=== PATIENT | female | born 1955 | race Caucasian/White ===

== ENCOUNTER 2018-11-18 20:50 | Inpatient (IN) ==
[2018-11-18] MEDS ORDERED: SODIUM CHLORIDE 0.9% 1000ML 1,000 ML IV ONE (20:59)
[2018-11-18 21:37] LABS: Eosinophils # (auto) 0.01 K/uL (0-0.5); Eosinophils % (auto) 0.2 %; Hematocrit (blood only) 37.5 % (37-47); Immature Granulocytes # (auto) 0.01 K/uL (0.00-0.02); Immature Granulocytes % (auto) 0.2 %; Lymphocytes # (auto) 0.82 K/uL (1.2-3.4); Lymphocytes % (auto) 19.2 %; Mean Corpuscular Hgb Conc 34.7 g/dL (32-36); Mean Corpuscular Volume 87.4 fL (80-100); Mean Platelet Volume 10.1 fL (7.4-10.4); Monocytes # (auto) 0.38 K/uL (0.11-0.59); Monocytes % (auto) 8.9 %; Neutrophils # (auto) 3.05 K/uL (1.4-6.5); Neutrophils % (auto) 71.5 %; Platelet Count 195 K/uL (130-400); RDW Coefficient of Variation 12.4 % (11.5-14.5); Red Blood Count 4.29 M/uL (4.2-5.4); White Blood Count 4.27 K/uL (4.8-10.8)
[2018-11-18 21:49] LABS: Partial Thromboplastin Ratio 1.2; Partial Thromboplastin Time 31.8 Seconds (21.0-31.0); Prothrombin Time 10.5 Seconds (9.0-12.0)
[2018-11-18 21:53] LABS: Alanine Aminotransferase 20 U/L (12-78); Albumin Level 3.7 gm/dl (3.4-5.0); Aspartate Aminotransferase 16 U/L (15-37); BUN Creatinine Ratio 10.1 (10-20); Bilirubin Direct 0.2 mg/dl (0-0.2); Blood Urea Nitrogen 9 mg/dl (7-18); Calcium 8.8 mg/dl (8.5-10.1); Carbon Dioxide 28 mmol/L (21-32); Chloride 98 mmol/L (98-107); Creatinine Clr Calc Pharmacy 65.9 ml/min; Est GFR (African American) 76.8; Est GFR (Non-African American) 66.3; Glucose 92 mg/dl (70-99); Potassium 3.2 mmol/L (3.5-5.1); Sodium 134 mmol/L (136-145)
--- NOTE | 2018-11-18 21:57 | Ultrasound Report ---
BILATERAL LOWER EXTREMITY VENOUS DOPPLER HISTORY: Leg swelling. COMPARISON STUDY: None. FINDINGS: There is normal compressibility, flow, and augmentation within the bilateral lower extremit y deep venous systems. IMPRESSION: No DVT within the right or left lower extremity. Electronically signed by: Srikanth Srivastava M.D. 11/18/2018 9:56 PM
[2018-11-18 22:02] LABS: Alkaline Phosphatase 58 U/L (45-117); Bilirubin,Total 0.7 mg/dl (0.2-1); Total Protein 6.7 gm/dl (6.4-8.2); Troponin I < 0.015 ng/ml (0-0.045)
[2018-11-18 22:09] LABS: Influenza B virus by PCR Neg for Influ B (Neg)
[2018-11-18] MEDS ORDERED: OPTIRAY 320 125ml IV PRN (22:19)
--- NOTE | 2018-11-18 22:44 | CT Scan Report ---
CHEST CTA for PULMONARY ARTERIES CT DOSE: 903.08 mGy.cm HISTORY: Cough. Elevated d-dimer. TECHNIQUE: Multiaxial CT images of the chest were performed following the intravenous administration of contrast to evaluate the pulmonary arteries. Maximal intensity projection images were also obtaine d. A dose lowering technique was utilized adhering to the principles of ALARA. COMPARISON STUDY: None. FINDINGS: Normal caliber thoracic aorta with no evidence for dissection. The heart is normal in size. No pleural or pericardial effusions. No filling defects within the pulmonary arteries to suggest pul monary embolus. There is mild thickening within the proximal to mid esophagus. No mediastinal or val r lymphadenopathy. No suspicious lytic or blastic osseous lesions. Small fat-containing right-sided B ochdalek hernia. No pneumothorax. The central airways are patent. Pneumoperitoneum is identified. A 3 mm nodule within the right lung apex on image 402. Otherwise, the lungs are clear. IMPRESSION: 1. No evidence for pulmonary embolus. 2. Pneumoperitoneum. This is better appreciated on the same day abdomen and pelvis CT 3. A 3 mm indeterminate pulmonary nodule within the right lung apex. 4. Mild thickening of the proximal to mid esophagus. This may represent a mild esophagitis. Electronically signed by: Srikanth Srivastava M.D. 11/18/2018 10:43 PM
--- NOTE | 2018-11-18 22:57 | CT Scan Report ---
ABDOMEN AND PELVIS CT WITH IV CONTRAST CT DOSE: HISTORY: Nausea. Cough. Abnormal chest x-ray. Evaluate for free air. TECHNIQUE: Multiaxial CT images of the abdomen and pelvis were performed following the use of intrave nous contrast. A dose lowering technique was utilized adhering to the principles of ALARA. COMPARISON STUDY: None. FINDINGS: The lung bases are clear. No suspicious lytic or blastic osseous lesions. The liver, gallbl adder, spleen, adrenal glands, pancreas, and left kidney are unremarkable. There is a 5 mm hypodense lesion within the lower pole the right kidney which is too small to characterize. No hydronephrosis. No retroperitoneal lymphadenopathy. Normal caliber abdominal aorta. The bladder, uterus, and bilatera l adnexa are unremarkable. Trace pelvic free fluid. The main portal vein is patent. There is whirling of the central mesentery best seen on images 178 through 225. There is a single prominent mesenteric lymph node which may be reactive. No dilated loops of bowel at this time to suggest an obstruction. Normal appendix. A small amount of pneumoperitoneum is identified within the upper abdomen. No bowel wall thickening. Multiple colonic diverticula. No evidence for diverticulitis. IMPRESSION: 1. Confirmation of the small amount of pneumoperitoneum. This is concerning for a bowel perforation. However, the exact location is not clearly identified on this study. 2. Multiple colonic diverticula. No evidence for diverticulitis. 3. There is whirling of the mid mesentery which is concerning for an internal hernia. No evidence for bowel obstruction at this time. 4. Normal appendix. 5. These findings were discussed with Dr. Welch at 10:53 PM on 11/18/2018. Electronically signed by: Srikanth Srivastava M.D. 11/18/2018 10:55 PM
--- NOTE | 2018-11-18 23:42 | History & Physical Report ---
Date of Service November 18, 2018 Assessment & Plan (1) Intra-abdominal free air of unknown etiology: 63 yr old woman with small amount of pneumoperitoneum but completely benign abd exam, no leukocytosis, no abdominal pain. ? small diverticular perforation that sealed itself. Explained that there is currently no need for urgent surgical intervention. Will plan on monitoring for 1-2 days, bowel rest for 24 hrs to assess abd exam, IV antibiotics to cover possible bowel organisms. Will need outpt colonoscopy once this acute episode has resolved. Pt is aware of this need. Present on Admission?: Yes (2) Influenza A: Likely the cause of her fever/ cough. Conservative treatment. Will consider medicine consult in am to see if will benefit from tamiflu. Present on Admission?: Yes History of Present Illness Chief Complaint: fever/ cough Primary Care Provider: NO PCP 63 yr old woman visiting from [place] - flew up yesterday and then took [employer] bus from [place]. This morning, awoke with fever and cough. C oughing greenish sputum. [place] ill. Tried to eat some potato chips and vomited. Outpatient cxr done showed possible free air. Sent to ER where CT abd/ pelvis shows small amount of pneumoperitoneum. Not having any abdominal pain currently. In retrospect, thinks she may have had one pain in the LLQ during the airplane flight yesterday. Ate normally yesterday. Bowels functioning with normal bowel movement today. No current nausea and feels hungry. Last colonoscopy over 10 yrs ago. Has seen gi in the past for "stomach issues" and gassiness for which she takes gaviscon as needed. On fibercon also and typically has 3 bm's daily. No similar episodes in the past. No prior abdominal operations. Also diagnosed with the flu currently. Allergies Allergy/AdvReac Type Severity Reaction Status Date / Time prochlorperazine Allergy Intermediate passes out Verified 11/18/18 23:20 [From Compazine] Home Medications Home Medications Medication Instructions Recorded Confirmed Type estradiol-norethindrone acet 1 tab PO DAILY 11/18/18 11/18/18 History Past Med/Surg History Medical History Hypertension Social History Preferred Language: Hungarian Feels Safe at Home: Yes Smoking Status: Never smoker Review of Systems Constitutional: + fever Eyes: no problem reported Ear, Nose, Mouth, Throat: no problem reported Respiratory: + cough Cardiovascular: no problem reported Gastrointestinal: no problem reported Genitourinary: no problem reported Neurologic: no problem reported Psychiatric: no problem reported Endocrine: no problem reported Physical Exam Constitutional: WD/WN, vitals as above Eyes: PERRL, conjunctivae normal, anicteric sclerae ENMT: external ear and nose normal, oropharynx normal Neck: trachea midline, no thyromegaly Respiratory: normal respiratory effort, lungs clear to auscultation Cardiovascular: RRR, no murmur, no edema Gastrointestinal (Abdomen): normal bowel sounds, soft, nontender, no hepatosplenomegaly no guarding, no rebound Musculoskeletal: no cyanosis or clubbing, extremities motor strength 5/5 Neurologic: PERRL, EOMI, accommodation nl, no face palsy, no dysarthria Psychiatric: A+Ox3, euthymic affect Results & Data Vital Signs (Past 12 Hours) Vital Signs Temp Pulse Pulse Resp BP BP Pulse Ox 11/18/18 23:02 74 18 161/94 H 96 11/18/18 22:37 36.9 C 74 14 161/94 H 99 11/18/18 21:30 77 15 169/90 H 99 11/18/18 21:27 73 14 134/88 100 11/18/18 21:25 85 18 100 11/18/18 20:51 36.9 C 85 18 159/90 H [address] normal Diagnostic Findings CT scan abd/ pelvis reviewed - shows small amount of pneumoperitoneum without clear source
--- NOTE | 2018-11-19 00:20 | Emergency Department Note ---
Entered by Adelia Garcia acting as a scribe for Zeeshan Welch History of Present Illness General Chief complaint: Abnormal Labs/Diagnostic Testing Stated complaint: ELEVATED D DIMER Time Seen by Provider: 11/18/18 20:57 Source: patient Mode of arrival: ambulatory Limitations: no limitations History of Present Illness Onset (ago): hour(s) greater than 10 (12) Radiation: non-radiation Pain Consistency: + constant Maximum Pain Intensity: 1 Relieved By: + none Exacerbated By: + none Associated symptoms: + chest pain, + cough and + headaches Treatments prior to arrival: none The patient is a 63 year old female who presents to the ED with complaints of abnormal lab work. She reports she flew to the area from [place] yesterday. This morning she checked her temperature, and it was 101.2. She also experienced a headache, cough and chest pain. She went to a local clinic to see about getting antibiotics and states her doctor was concerned since she takes daily Estrogen and Progesterone, so she was referred here to the ED after her d-dimer came back elevated. The patient complains of intermittent "sharp" abdominal pain. She denies any leg pain but admits to minimal swelling in the past 1 month. She admits to a history of hypertension, but states she never took medication for it. Home Medications Home Medications Medication Instructions Recorded Confirmed Type estradiol-norethindrone acet 1 tab PO DAILY 11/18/18 11/18/18 History Allergies Allergy/AdvReac Type Severity Reaction Status Date / Time prochlorperazine Allergy Intermediate passes out Verified 11/18/18 23:20 [From Compazine] Past Med/Surg History Medical History Hypertension Social History Preferred Language: Costa Rican Feels Safe at Home: Yes Smoking Status: Never smoker Review of Systems See HPI for pertinent positives & negatives. and A total of 10 systems reviewed and were otherwise negative Physical Exam Vital Signs Vital Signs - 24 hr 11/18/18 20:51 11/18/18 21:25 11/18/18 21:27 Temperature 36.9 C Temperature Source Oral Sepsis Recent Fever Within 48 Hours No Sepsis Action Taken by Nursing No Action Required Pulse Rate 85 85 73 Pulse Rate [Finger] Pulse Rate from SpO2 Sensor 72 Pulse Rhythm Regular Respiratory Rate 18 18 14 Respiratory Effort / Characteristics Non-Labored Spontaneous Respiratory Depth Normal Respiratory Pattern Regular Blood Pressure 159/90 H 134/88 Blood Pressure [Right Arm] Blood Pressure Mean 113 103 Blood Pressure Mean [Right Arm] Blood Pressure Position Sitting Pulse Oximetry 100 100 100 Oxygen Delivery Method Room Air Room Air Room Air 11/18/18 21:30 11/18/18 22:37 11/18/18 23:02 Temperature 36.9 C Temperature Source Sepsis Recent Fever Within 48 Hours Sepsis Action Taken by Nursing Pulse Rate 77 74 Pulse Rate [Finger] 74 Pulse Rate from SpO2 Sensor 77 75 Pulse Rhythm Respiratory Rate 15 14 18 Respiratory Effort / Characteristics Respiratory Depth Respiratory Pattern Blood Pressure 169/90 H 161/94 H Blood Pressure [Right Arm] 161/94 H Blood Pressure Mean 116 116 Blood Pressure Mean [Right Arm] 116 Blood Pressure Position Pulse Oximetry 99 99 96 Oxygen Delivery Method Room Air Room Air Room Air GENERAL: She is oriented to person, place, and time. She appears well-developed and well-nourished. She does not appear distressed. HENT: Exam performed. Head: Normocephalic and atraumatic. Right Ear: External ear normal. No mastoid tenderness. Left Ear: External ear normal. No mastoid tenderness. Mouth/Throat: The oropharynx is clear and moist. No trismus in the jaw. No dental abscesses or uvula swelling. No oropharyngeal exudate or tonsillar abscesses. EYES: Conjunctivae and EOM are normal. Pupils are equal, round, and reactive to light. Right eye exhibits no discharge. Left eye exhibits no discharge. No scleral icterus. NECK: Normal range of motion. Neck supple. No JVD present. No spinous process tenderness present. No carotid bruit present. No rigidity. No tracheal deviation and normal range of motion present. No Brudzinski's sign and no Kernig's sign noted. CV: Normal rate, regular rhythm, normal heart sounds and intact distal pulses. There is no peripheral edema. Palpable radial pulses bue. PULM/CHEST: Effort normal and breath sounds normal. No respiratory distress. No stridor. She has no wheezes. She has no rales. Chest Wall: She exhibits no tenderness. ABD: The abdomen is soft. Bowel sounds are normal. She has no distension. No mass is present. There is no tenderness. There is no rebound, no guarding, no Perdue's sign and no tenderness at McBurney's point. Rovsig negative MUSC/SKEL: Normal range of motion. 1+ swelling in bilateral LE. There is no tenderness or deformity. LYMPH: No cervical adenopathy. NEURO: She is alert and oriented to person, place, and time. She has normal strength. No cranial nerve deficit or sensory deficit. Coordination and gait normal. GCS eye subscore is 4. GCS verbal subscore is 5. GCS motor subscore is 6. cerbellar tests wnl. SKIN: Skin is warm and dry. She is not diaphoretic. PSYCH: She has a normal mood and affect. Her behavior is normal. Judgment and thought content normal. Course 2102: The patient was evaluated in room B3 and a complete history and physical examination were performed. EMR reviewed. Patients D-Dimer was greater than 1000. CXR showed possible free air under right matt-diaphragm. 2256: I discussed the patients case with Dr. Srivastava, Radiology. He informed me of free air seen on the patients CT scan. 2258: I discussed the patients case with Dr. Bro, [facility]. She will call me back. 2318: Vital signs stable. Labs within normal limits with exception of potassium 3.2. Influenza positive. CTA of the chest showed no PE. CT of the abdomen showed intra-abdominal free air. On repeat abdominal exam, the patient has no pain on palpation of the abdomen. I discussed the patients case with Dr. Bro again. She will come in and evaluate the patient. The patient is NPO. I discussed the CT findings with the patient and her daughter who is at the [facility]. 2340: Dr. Bro came and evaluated the patient at bedside. She states she will admit the patient to her service. Patient is remain n.p.o. Consultations Consultation #1: I discussed the patients case with Dr. Srivastava, Radiology. He informed me of free air seen on the patients CT scan. Time: 22:56 Consultation #2: I discussed the patients case with Dr. Bro, [facility]. She will call me back. Time: 22:58 Administered Medications Ioversol (Optiray 320 125ml) 120 ml IV ONCE PRN PRN Reason: Interaction Checking Stop: 11/22/18 22:18 Last Admin: 11/18/18 22:19 Dose: 120 ml Documented by: [id number] Discontinued Medications Sodium Chloride (Nss 1000ml) 1,000 mls @ 999 mls/hr IV .Q1H1M ONE Stop: 11/18/18 21:59 Last Infusion: 11/18/18 22:38 Dose: 0 mls/hr Documented by: [id number] Admin: 11/18/18 21:26 Dose: 999 mls/hr Documented by: [id number] Medical Decision Making Medical Records Attestation: I reviewed the patient's medical records. Home Medications Current Medication List: was personally reviewed by ga Laboratory Data Attestation: I reviewed the patient's lab results. Result diagrams: 11/18/18 21:24 11/18/18 21:24 Lab Results 11/18/18 11/18/18 11/18/18 Range/Units 21:14 21:24 21:24 WBC 4.27 L (4.8-10.8) K/uL RBC 4.29 (4.2-5.4) M/uL Hgb 13.0 (12.0-16.0) g/dL Hct 37.5 (37-47) % MCV 87.4 (80-100) fL MCH 30.3 (25-34) pg MCHC 34.7 (32-36) g/dL RDW Std Deviation 40.0 (36.4-46.3) fL RDW Coeff of Perry 12.4 (11.5-14.5) % Plt Count 195 (130-400) K/uL MPV 10.1 (7.4-10.4) fL Immature Gran % (Auto) 0.2 % Neut % (Auto) 71.5 % Lymph % (Auto) 19.2 % Hancock % (Auto) 8.9 % Eos % (Auto) 0.2 % Baso % (Auto) 0.0 % Immature Gran # (Auto) 0.01 (0.00-0.02) K/uL Neut # (Auto) 3.05 (1.4-6.5) K/uL Lymph # (Auto) 0.82 L (1.2-3.4) K/uL Hancock # (Auto) 0.38 (0.11-0.59) K/uL Eos # (Auto) 0.01 (0-0.5) K/uL Baso # (Auto) 0.00 (0-0.2) K/uL PT 10.5 (9.0-12.0) Seconds INR 1.0 (0.9-1.1) APTT 31.8 H (21.0-31.0) Seconds PTT Ratio 1.2 Sodium (136-145) mmol/L Potassium (3.5-5.1) mmol/L Chloride (98-107) mmol/L Carbon Dioxide (21-32) mmol/L Anion Gap (3-11) BUN (7-18) mg/dl Creatinine (0.6-1.2) mg/dl Est Cr Clr Drug Dosing ml/min Est GFR ( Amer) Est GFR (Non-Af Amer) BUN/Creatinine Ratio (10-20) Glucose (70-99) mg/dl Lactate (0.4-2.0) mmol/L Calcium (8.5-10.1) mg/dl Total Bilirubin (0.2-1) mg/dl Direct Bilirubin (0-0.2) mg/dl AST (15-37) U/L ALT (12-78) U/L Alkaline Phosphatase (45-117) U/L Troponin I (0-0.045) ng/ml Total Protein (6.4-8.2) gm/dl Albumin (3.4-5.0) gm/dl Lipase (73-393) U/L Influenza Type A (PCR) Pos for Influ A A* (Neg) Influenza Type B (PCR) Neg for Influ B (Neg) 11/18/18 11/18/18 Range/Units 21:24 21:24 WBC (4.8-10.8) K/uL RBC (4.2-5.4) M/uL Hgb (12.0-16.0) g/dL Hct (37-47) % MCV (80-100) fL MCH (25-34) pg MCHC (32-36) g/dL RDW Std Deviation (36.4-46.3) fL RDW Coeff of Perry (11.5-14.5) % Plt Count (130-400) K/uL MPV (7.4-10.4) fL Immature Gran % (Auto) % Neut % (Auto) % Lymph % (Auto) % Hancock % (Auto) % Eos % (Auto) % Baso % (Auto) % Immature Gran # (Auto) (0.00-0.02) K/uL Neut # (Auto) (1.4-6.5) K/uL Lymph # (Auto) (1.2-3.4) K/uL Hancock # (Auto) (0.11-0.59) K/uL Eos # (Auto) (0-0.5) K/uL Baso # (Auto) (0-0.2) K/uL PT (9.0-12.0) Seconds INR (0.9-1.1) APTT (21.0-31.0) Seconds PTT Ratio Sodium 134 L (136-145) mmol/L Potassium 3.2 L (3.5-5.1) mmol/L Chloride 98 (98-107) mmol/L Carbon Dioxide 28 (21-32) mmol/L Anion Gap 7.0 (3-11) BUN 9 (7-18) mg/dl Creatinine 0.92 (0.6-1.2) mg/dl Est Cr Clr Drug Dosing 65.9 ml/min Est GFR ( Amer) 76.8 Est GFR (Non-Af Amer) 66.3 BUN/Creatinine Ratio 10.1 (10-20) Glucose 92 (70-99) mg/dl Lactate 0.9 (0.4-2.0) mmol/L Calcium 8.8 (8.5-10.1) mg/dl Total Bilirubin 0.7 (0.2-1) mg/dl Direct Bilirubin 0.2 (0-0.2) mg/dl AST 16 (15-37) U/L ALT 20 (12-78) U/L Alkaline Phosphatase 58 (45-117) U/L Troponin I < 0.015 (0-0.045) ng/ml Total Protein 6.7 (6.4-8.2) gm/dl Albumin 3.7 (3.4-5.0) gm/dl Lipase 54 L (73-393) U/L Influenza Type A (PCR) (Neg) Influenza Type B (PCR) (Neg) Imaging Data Radiologist's Impression: Radiology results as stated below per my review and the radiologist's interpretation: BILATERAL LOWER EXTREMITY VENOUS DOPPLER HISTORY: Leg swelling. COMPARISON STUDY: None. FINDINGS: There is normal compressibility, flow, and augmentation within the bilateral lower extremity deep venous systems. IMPRESSION: No DVT within the right or left lower extremity. Electronically signed by: Srikanth Srivastava M.D. 11/18/2018 9:56 PM [address]OMEN AND PELVIS CT WITH IV CONTRAST CT DOSE: HISTORY: Nausea. Cough. Abnormal chest x-ray. Evaluate for free air. TECHNIQUE: Multiaxial CT images of the abdomen and pelvis were performed following the use of intravenous contrast. A dose lowering technique was utilized adhering to the principles of ALARA. COMPARISON STUDY: None. FINDINGS: The lung bases are clear. No suspicious lytic or blastic osseous lesions. The liver, gallbladder, spleen, adrenal glands, pancreas, and left kidney are unremarkable. There is a 5 mm hypodense lesion within the lower pole the right kidney which is too small to characterize. No hydronephrosis. No retroperitoneal lymphadenopathy. Normal caliber abdominal aorta. The bladder, uterus, and bilateral adnexa are unremarkable. Trace pelvic free fluid. The main portal vein is patent. There is whirling of the central mesentery best seen on images 178 through 225. There is a single prominent mesenteric lymph node which may be reactive. No dilated loops of bowel at this time to suggest an obstruction. Normal appendix. A small amount of pneumoperitoneum is identified within the upper abdomen. No bowel wall thickening. Multiple colonic diverticula. No evidence for diverticulitis. IMPRESSION: 1. Confirmation of the small amount of pneumoperitoneum. This is concerning for a bowel perforation. However, the exact location is not clearly identified on this study. 2. Multiple colonic diverticula. No evidence for diverticulitis. 3. There is whirling of the mid mesentery which is concerning for an internal hernia. No evidence for bowel obstruction at this time. 4. Normal appendix. 5. These findings were discussed with Dr. Welch at 10:53 PM on 11/18/2018. Electronically signed by: Srikanth Srivastava M.D. 11/18/2018 10:55 PM CHEST CTA for PULMONARY ARTERIES CT DOSE: 903.08 mGy.cm HISTORY: Cough. Elevated d-dimer. TECHNIQUE: Multiaxial CT images of the chest were performed following the intravenous administration of contrast to evaluate the pulmonary arteries. Maximal intensity projection images were also obtained. A dose lowering technique was utilized adhering to the principles of ALARA. COMPARISON STUDY: None. FINDINGS: Normal caliber thoracic aorta with no evidence for dissection. The heart is normal in size. No pleural or pericardial effusions. No filling defects within the pulmonary arteries to suggest pulmonary embolus. There is mild thickening within the proximal to mid esophagus. No mediastinal or hilar lymphadenopathy. No suspicious lytic or blastic osseous lesions. Small fat- containing right-sided Bochdalek hernia. No pneumothorax. The central airways are patent. Pneumoperitoneum is identified. A 3 mm nodule within the right lung apex on image 402. Otherwise, the lungs are clear. IMPRESSION: 1. No evidence for pulmonary embolus. 2. Pneumoperitoneum. This is better appreciated on the same day abdomen and pelvis CT 3. A 3 mm indeterminate pulmonary nodule within the right lung apex. 4. Mild thickening of the proximal to mid esophagus. This may represent a mild esophagitis. Electronically signed by: Srikanth Srivastava M.D. 11/18/2018 10:43 PM ECG Data Attestation: I personally reviewed and interpreted this ECG as follows: Indication: chest pain Rate (beats per minute): 75 Rhythm: sinus rhythm Findings: + other (CA, QRS and QTC within normal limits); no ST depression and no ST elevation Blood Pressure Blood Pressure Findings: Elevated blood pressure Blood Pressure Disposition: further management by hospitalist [facility] Narrative 2102: The patient was evaluated in room B3 and a complete history and physical examination were performed. EMR reviewed. Patients D-Dimer was greater than 1000. CXR showed possible free air under right matt-diaphragm. 2256: I discussed the patients case with Dr. Srivastava, Radiology. He informed me of free air seen on the patients CT scan. 2258: I discussed the patients case with Dr. Bro, [facility] General Surgery. She will call me back. 2318: Vital signs stable. Labs within normal limits with exception of potassium 3.2. Influenza positive. CTA of the chest showed no PE. CT of the abdomen showed intra-abdominal free air. On repeat abdominal exam, the patient has no pain on palpation of the abdomen. I discussed the patients case with Dr. Bro again. She will come in and evaluate the patient. The patient is NPO. I discussed the CT findings with the patient and her daughter who is at the bedside. 2340: Dr. Bro came and evaluated the patient at bedside. She states she will admit the patient to her service. Patient is remain n.p.o. Impression & Plan Bowel perforation, Influenza Discharge Plan Visit Data Chief Complaint: Abnormal Labs/Diagnostic Testing Stated Complaint: ELEVATED D DIMER ED Provider: Zeeshan Welch Discharge Problem: Bowel perforation, Influenza Patient Disposition: Being Evaluated by Surgeon Forms Stand Alone Forms: My [facility] Prescriptions Prescriptions: No Action estradiol-norethindrone acet 1-0.5 mg Tablet 1 tab PO DAILY RF: 0 Referrals Referrals: PCP,NO [Primary Care Provider] - The scribe's documentation has been prepared under my direction and personally reviewed by me in its entirety. I confirm that the note above accurately reflects all work, treatment, procedures, and medical decision making performed by me.
[2018-11-19] MEDS ORDERED: ACETAMINOPHEN 325 MG TAB PO PRN (00:41)
[2018-11-19] MEDS ORDERED: ONDANSETRON INJ 2 MG/ML 2 ML VIAL IV PRN (00:41)
[2018-11-19] MEDS ORDERED: MoRPHine SULFATE 2 MG/ML CARP IV PRN ×2 (00:41)
[2018-11-19] MEDS ORDERED: PIPERACILLIN/TAZOBACTAM 4.5 GM in DEXTROSE 5% 100 ML IV ONE (01:30)
[2018-11-19] MEDS: LACTATED RINGER'S 1,000 ML IV SCH ×3 (02:36→19:51)
[2018-11-19] MEDS ORDERED: PIPERACILL/TAZOBAC CONSULT ACTIVE PRN (06:07)
[2018-11-19] MEDS: PIPERACILLIN/TAZOBACTAM 3.375 GM in DEXTROSE 5% 100 ML IV SCH ×3 (07:58→23:56)
--- NOTE | 2018-11-19 08:09 | Consultation ---
Date of Consultation November 19, 2018 Assessment & Plan (1) Influenza A: - Will continue supportive care and start tamiflu now for 5 d course. - NPO for bowel perforation for now - Continue lactated ringers IV per primary team - Check BMP with hypokalemia on admission - likely from GI losses. Will replace K+ if needed - Check WBC - Ordered excedrin per pt request (2) Bowel perforation: - Monitor per primary team (3) Intra-abdominal free air of unknown etiology: (4) DVT prophylaxis: - Ambulatory. No chemical ppx with bowel microperforation Supervising Physician Co-Signing Physician Notes During my face to face encounter with the patient, I performed a history and physcial examination After reviewing above note, I agree with above statement. I will continue with tamiflu for a 5 day course. Patient appears to be breathing well and does not require any oxygen. History of Present Illness Reason for Consultation: Influenza A positive Attending Physician: Reina Friend MD History of Present Illness This is a 63 yo F with PMHx of diverticular bowel perforation for which she was admitted to the surgical service on 11/18/18. She is now found to be influenza A positive. Pt notes that she is visiting from [place] to see her daughter's family who lives in town. The patient flew on Friday to [place], and then traveled on a [employer] bus to [place]. She notes that on Friday evening she had a fever of 101.3 and felt a cough, increased shortness of breath with exertion, fatigue and malaise. Pt was admitted for worsening sx and possible PE, however that workup was negative. She was then found to have pneumoperitoneum on CT. Pt admits to dry heaves and vomiting x 1 yesterday morning. She is feeling quite well today other than a throbbing headache. She has hx of migraines and states this feels similar to those. She requests excedrin as this has some caffeine in it, and usually has a coffee daily however she has been NPO x 24 hrs. Pt denies any abd distension, bloating, pain, nausea, vomiting, diarrhea or constipation. She is urinating without difficulty. PSHx: Pt notes hx of tubal ligation in 1986, and a SBO about 5 years ago which resolved spontaneously and did not require surgical intervention. She denies any other abdominal surgeries. Allergies Allergy/AdvReac Type Severity Reaction Status Date / Time prochlorperazine Allergy Intermediate passes out Verified 11/18/18 23:20 [From Compazine] Home Medications Home Medications Medication Instructions Recorded Confirmed Type estradiol-norethindrone acet 1 tab PO DAILY 11/18/18 11/18/18 History Patient History Medical History Hypertension Social History Preferred Language: Grenadian Communication Ability: Effective Diagnostic Assistant Required: No Beliefs That Will Affect Care: Taoism Taoism Beliefs: "Ayan" Current Living Situation: Spouse Other Information That Helps Us Care for You: No Feels Safe at Home: Yes Safety Concerns: Feels Safe At This Time Smoking Status: Former smoker Hx Alcohol Use: Yes Hx Substance Use: No Review of Systems Review of Systems: Constitutional: No fever, sweats or chills Eyes: No diplopia, no worsening or blurred vision ENT: normal hearing, no trouble swallowing Respiratory: No cough, sputum, dyspnea at rest or on exertion Cardiovascular: No chest pain, tightness or palpitations Abdomen: No pain, nausea, vomiting, diarrhea or constipation Musculoskeletal: No joint pain, calf pain, swelling Neurologic: No weakness, numbness/tingling, or balance problems Psychiatric: No anxiety or depression Skin: No rash or itch Physical Exam Physical Exam: General: awake, alert, no apparent distress Head: Normocephalic, atraumatic ENT: PERRL, EOMI, no pharyngeal exudate, mucous membranes moist Chest: Clear to auscultation, on room air, no adventitious breath sounds Cardiac: Regular rate and rhythm, no murmur, no JVD, normal peripheral pulses, good capillary refill Abdominal: NABS x 4 quadrants, soft, nontender to palpation, no rebound, guarding or tenderness Extremities: Normal inspection, no peripheral edema or erythema, calfs nontender to palpation Psych: Normal mood and affect Neuro: AAO x 3, strength intact bilaterally and related 5/5, no motor deficits, speech is clear, no peripheral sensory deficits Results & Data Vital Signs (Past 12 Hours) Vital Signs Temp Pulse Pulse Resp BP BP BP 11/19/18 07:08 36.7 C 95 H 18 145/71 H 11/19/18 00:41 36 C L 78 18 148/83 H 11/19/18 00:30 36 C L 78 18 148/87 H 11/18/18 23:02 74 18 161/94 H 11/18/18 22:37 36.9 C 74 14 161/94 H 11/18/18 21:30 77 15 169/90 H 11/18/18 21:27 73 14 134/88 11/18/18 21:25 85 18 11/18/18 20:51 36.9 C 85 18 159/90 H Pulse Ox 11/19/18 07:08 99 11/19/18 00:41 95 11/19/18 00:30 95 11/18/18 23:02 96 11/18/18 22:37 99 11/18/18 21:30 99 11/18/18 21:27 100 11/18/18 21:25 100 11/18/18 20:51 100
[2018-11-19 08:39] LABS: Hematocrit (blood only) 39.7 % (37-47); Hemoglobin 13.6 g/dL (12.0-16.0); Mean Corpuscular Volume 88.4 fL (80-100); Platelet Count 205 K/uL (130-400); RDW Coefficient of Variation 12.6 % (11.5-14.5); RDW Standard Deviation 40.6 fL (36.4-46.3); Red Blood Count 4.49 M/uL (4.2-5.4); White Blood Count 3.26 K/uL (4.8-10.8)
[2018-11-19] MEDS ORDERED: EXCEDRIN PO PRN (08:47)
[2018-11-19 08:48] LABS: Mean Corpuscular Hgb Conc 34.3 g/dL (32-36)
[2018-11-19 08:57] LABS: Albumin Level 3.7 gm/dl (3.4-5.0); BUN Creatinine Ratio 7.1 (10-20); Calcium 8.9 mg/dl (8.5-10.1); Creatinine Clr Calc Pharmacy 66.9 ml/min; Est GFR (African American) 75.8; Est GFR (Non-African American) 65.4; Potassium 3.5 mmol/L (3.5-5.1)
[2018-11-19 09:00] LABS: Albumin Globulin Ratio 1.2 (0.9-2); Bilirubin,Total 0.6 mg/dl (0.2-1); Globulin 3.2 gm/dl (2.5-4.0); Total Protein 6.9 gm/dl (6.4-8.2)
[2018-11-19] MEDS: OSELTAMIVIR PHOSPHATE 75 MG CAP PO SCH ×2 (09:33→20:53)
[2018-11-19] MEDS ORDERED: OXYCODONE HCL IR 5 MG TAB (IMMEDIATE RELEASE) PO PRN (09:55)
--- NOTE | 2018-11-19 09:58 | Surgery Progress Note ---
Date of Service November 19, 2018 Assessment & Plan (1) Intra-abdominal free air of unknown etiology: 63 yr old woman with small amount of pneumoperitoneum but completely benign abd exam, no leukocytosis, no abdominal pain. ? small diverticular perforation that sealed itself. PUD/gastritis with small perf? Will plan on monitoring for 1-2 days, bowel rest for most of today, possibly clears this evening. Will need outpt colonoscopy once this acute episode has resolved. Pt is aware of this need. May have Tylenol for headache Avoid NSAIDs incase of gastritis/PUD Continue IV Zosyn Continue IV fluids Repeat am labs Oxycodone/IV Morphine prn moderate /severe pain Encouraged ambulation (2) Influenza A: Likely the cause of her fever/ cough. Tamiflu started per medicine service Droplet precautions Dr. Friend has seen and examined pt, agrees with above Supervising Physician Co-Signing Physician Notes I have seen and evaluated the patient and reviewed the medical record. I agree with the documentation as provided in this note by Zahra Freedman PA-C. Subjective Feeling fine no abdominal pain no nausea or vomiting + cough + headache due to caffeine withdrawal Physical Exam Constitutional: WD/WN, vitals as above no acute distress and not ill appearing Respiratory: normal respiratory effort; no respiratory distress Gastrointestinal (Abdomen): Inspection/Auscultation: abdomen normal to inspection; abdomen not distended Percussion/Palpation: abdomen soft; abdomen nontender, no guarding and abdomen not rigid Skin: no rashes, warm and dry Psychiatric: A+Ox3, euthymic affect Results & Data Vital Signs (Past 12 Hours) Vital Signs Temp Pulse Pulse Resp BP BP BP 11/19/18 07:08 36.7 C 95 H 18 145/71 H 11/19/18 00:41 36 C L 78 18 148/83 H 11/19/18 00:30 36 C L 78 18 148/87 H 11/18/18 23:02 74 18 161/94 H 11/18/18 22:37 36.9 C 74 14 161/94 H Pulse Ox 11/19/18 07:08 99 11/19/18 00:41 95 11/19/18 00:30 95 11/18/18 23:02 96 11/18/18 22:37 99 Laboratory Results 11/19/18 11/19/18 11/18/18 Range/Units 08:27 08:27 21:24 WBC 3.26 L (4.8-10.8) K/uL RBC 4.49 (4.2-5.4) M/uL Hgb 13.6 (12.0-16.0) g/dL Hct 39.7 (37-47) % MCV 88.4 (80-100) fL MCH 30.3 (25-34) pg MCHC 34.3 (32-36) g/dL RDW Std Deviation 40.6 (36.4-46.3) fL RDW Coeff of [place] 12.6 (11.5-14.5) % Plt Count 205 (130-400) K/uL MPV 10.0 (7.4-10.4) fL Immature Gran % (Auto) % Neut % (Auto) % Lymph % (Auto) % [place] % (Auto) % Eos % (Auto) % Baso % (Auto) % Immature Gran # (Auto) (0.00-0.02) K/uL Neut # (Auto) (1.4-6.5) K/uL Lymph # (Auto) (1.2-3.4) K/uL [place] # (Auto) (0.11-0.59) K/uL Eos # (Auto) (0-0.5) K/uL Baso # (Auto) (0-0.2) K/uL PT (9.0-12.0) Seconds INR (0.9-1.1) APTT (21.0-31.0) Seconds PTT Ratio Sodium 139 (136-145) mmol/L Potassium 3.5 (3.5-5.1) mmol/L Chloride 106 (98-107) mmol/L Carbon Dioxide 27 (21-32) mmol/L Anion Gap 6.0 (3-11) BUN 7 (7-18) mg/dl Creatinine 0.93 (0.6-1.2) mg/dl Est Cr Clr Drug Dosing 66.9 ml/min Est GFR ( Amer) 75.8 Est GFR (Non-Af Amer) 65.4 BUN/Creatinine Ratio 7.1 L (10-20) Glucose 92 (70-99) mg/dl Lactate 0.9 (0.4-2.0) mmol/L Calcium 8.9 (8.5-10.1) mg/dl Total Bilirubin 0.6 (0.2-1) mg/dl Direct Bilirubin (0-0.2) mg/dl AST 19 (15-37) U/L ALT 22 (12-78) U/L Alkaline Phosphatase 58 (45-117) U/L Troponin I (0-0.045) ng/ml Total Protein 6.9 (6.4-8.2) gm/dl Albumin 3.7 (3.4-5.0) gm/dl Globulin 3.2 (2.5-4.0) gm/dl Albumin/Globulin Ratio 1.2 (0.9-2) Lipase (73-393) U/L Influenza Type A (PCR) (Neg) Influenza Type B (PCR) (Neg) 11/18/18 11/18/18 11/18/18 Range/Units 21:24 21:24 21:24 WBC 4.27 L (4.8-10.8) K/uL RBC 4.29 (4.2-5.4) M/uL Hgb 13.0 (12.0-16.0) g/dL Hct 37.5 (37-47) % MCV 87.4 (80-100) fL MCH 30.3 (25-34) pg MCHC 34.7 (32-36) g/dL RDW Std Deviation 40.0 (36.4-46.3) fL RDW Coeff of [place] 12.4 (11.5-14.5) % Plt Count 195 (130-400) K/uL MPV 10.1 (7.4-10.4) fL Immature Gran % (Auto) 0.2 % Neut % (Auto) 71.5 % Lymph % (Auto) 19.2 % [place] % (Auto) 8.9 % Eos % (Auto) 0.2 % Baso % (Auto) 0.0 % Immature Gran # (Auto) 0.01 (0.00-0.02) K/uL Neut # (Auto) 3.05 (1.4-6.5) K/uL Lymph # (Auto) 0.82 L (1.2-3.4) K/uL [place] # (Auto) 0.38 (0.11-0.59) K/uL Eos # (Auto) 0.01 (0-0.5) K/uL Baso # (Auto) 0.00 (0-0.2) K/uL PT 10.5 (9.0-12.0) Seconds INR 1.0 (0.9-1.1) APTT 31.8 H (21.0-31.0) Seconds PTT Ratio 1.2 Sodium 134 L (136-145) mmol/L Potassium 3.2 L (3.5-5.1) mmol/L Chloride 98 (98-107) mmol/L Carbon Dioxide 28 (21-32) mmol/L Anion Gap 7.0 (3-11) BUN 9 (7-18) mg/dl Creatinine 0.92 (0.6-1.2) mg/dl Est Cr Clr Drug Dosing 65.9 ml/min Est GFR ( Amer) 76.8 Est GFR (Non-Af Amer) 66.3 BUN/Creatinine Ratio 10.1 (10-20) Glucose 92 (70-99) mg/dl Lactate (0.4-2.0) mmol/L Calcium 8.8 (8.5-10.1) mg/dl Total Bilirubin 0.7 (0.2-1) mg/dl Direct Bilirubin 0.2 (0-0.2) mg/dl AST 16 (15-37) U/L ALT 20 (12-78) U/L Alkaline Phosphatase 58 (45-117) U/L Troponin I < 0.015 (0-0.045) ng/ml Total Protein 6.7 (6.4-8.2) gm/dl Albumin 3.7 (3.4-5.0) gm/dl Globulin (2.5-4.0) gm/dl Albumin/Globulin Ratio (0.9-2) Lipase 54 L (73-393) U/L Influenza Type A (PCR) (Neg) Influenza Type B (PCR) (Neg) 11/18/18 Range/Units 21:14 WBC (4.8-10.8) K/uL RBC (4.2-5.4) M/uL Hgb (12.0-16.0) g/dL Hct (37-47) % MCV (80-100) fL MCH (25-34) pg MCHC (32-36) g/dL RDW Std Deviation (36.4-46.3) fL RDW Coeff of [place] (11.5-14.5) % Plt Count (130-400) K/uL MPV (7.4-10.4) fL Immature Gran % (Auto) % Neut % (Auto) % Lymph % (Auto) % [place] % (Auto) % Eos % (Auto) % Baso % (Auto) % Immature Gran # (Auto) (0.00-0.02) K/uL Neut # (Auto) (1.4-6.5) K/uL Lymph # (Auto) (1.2-3.4) K/uL [place] # (Auto) (0.11-0.59) K/uL Eos # (Auto) (0-0.5) K/uL Baso # (Auto) (0-0.2) K/uL PT (9.0-12.0) Seconds INR (0.9-1.1) APTT (21.0-31.0) Seconds PTT Ratio Sodium (136-145) mmol/L Potassium (3.5-5.1) mmol/L Chloride (98-107) mmol/L Carbon Dioxide (21-32) mmol/L Anion Gap (3-11) BUN (7-18) mg/dl Creatinine (0.6-1.2) mg/dl Est Cr Clr Drug Dosing ml/min Est GFR ( Amer) Est GFR (Non-Af Amer) BUN/Creatinine Ratio (10-20) Glucose (70-99) mg/dl Lactate (0.4-2.0) mmol/L Calcium (8.5-10.1) mg/dl Total Bilirubin (0.2-1) mg/dl Direct Bilirubin (0-0.2) mg/dl AST (15-37) U/L ALT (12-78) U/L Alkaline Phosphatase (45-117) U/L Troponin I (0-0.045) ng/ml Total Protein (6.4-8.2) gm/dl Albumin (3.4-5.0) gm/dl Globulin (2.5-4.0) gm/dl Albumin/Globulin Ratio (0.9-2) Lipase (73-393) U/L Influenza Type A (PCR) Pos for Influ A A* (Neg) Influenza Type B (PCR) Neg for Influ B (Neg)
[2018-11-20] MEDS: LACTATED RINGER'S 1,000 ML IV SCH ×2 (00:01→09:04)
[2018-11-20] MEDS ORDERED: COUGH DROP (SUGAR FREE) LOZ 24 LOZ/1 BOX BUCCAL ONE (00:26)
[2018-11-20 04:24] LABS: Basophils # (auto) 0.01 K/uL (0-0.2); Basophils % (auto) 0.2 %; Eosinophils # (auto) 0.02 K/uL (0-0.5); Eosinophils % (auto) 0.5 %; Hematocrit (blood only) 34.7 % (37-47); Hemoglobin 12.2 g/dL (12.0-16.0); Immature Granulocytes # (auto) 0.01 K/uL (0.00-0.02); Immature Granulocytes % (auto) 0.2 %; Lymphocytes # (auto) 1.21 K/uL (1.2-3.4); Lymphocytes % (auto) 29.4 %; Mean Corpuscular Hgb Conc 35.2 g/dL (32-36); Mean Corpuscular Volume 88.3 fL (80-100); Mean Platelet Volume 9.7 fL (7.4-10.4); Monocytes # (auto) 0.43 K/uL (0.11-0.59); Monocytes % (auto) 10.4 %; Neutrophils # (auto) 2.44 K/uL (1.4-6.5); Neutrophils % (auto) 59.3 %; Platelet Count 183 K/uL (130-400); RDW Coefficient of Variation 12.6 % (11.5-14.5); RDW Standard Deviation 40.6 fL (36.4-46.3); Red Blood Count 3.93 M/uL (4.2-5.4); White Blood Count 4.12 K/uL (4.8-10.8)
[2018-11-20 04:40] LABS: BUN Creatinine Ratio 8.1 (10-20); Calcium 7.9 mg/dl (8.5-10.1); Creatinine Clr Calc Pharmacy 77.8 ml/min; Est GFR (African American) 90.9; Est GFR (Non-African American) 78.5; Potassium 3.4 mmol/L (3.5-5.1)
[2018-11-20] MEDS: PIPERACILLIN/TAZOBACTAM 3.375 GM in DEXTROSE 5% 100 ML IV SCH (09:04)
[2018-11-20] MEDS: OSELTAMIVIR PHOSPHATE 75 MG CAP PO SCH (09:05)
[2018-11-20] MEDS ORDERED: CIPROFLOXACIN 500 MG TAB PO SCH (09:15)
--- NOTE | 2018-11-20 09:40 | Surgery Progress Note ---
Date of Service November 20, 2018 Assessment & Plan (1) Intra-abdominal free air of unknown etiology: 63 yr old woman with small amount of pneumoperitoneum but completely benign abd exam, no leukocytosis, no abdominal pain. ? small diverticular perforation that sealed itself vs ? PUD/gastritis with small perf vs ?esophageal perforation (she did have an episode of forceful vomiting prior to presentation) - Clear liquids for breakfast, if tolerated advance to regular diet for lunch - Will need outpt colonoscopy and possible EGDonce this acute episode has resolved. Pt is aware of this need. She will schedule an appointment with her fibrous plasterer in [place]. - Avoid NSAIDs incase of gastritis/PUD - D/c IV Zosyn, start PO Cipro and Flagyl, plan for total of 7 days of abx - D/c IV fluids - Dispo: d/c home today if tolerates lunch and dinner with no increase pain - Pt to be discharged with records, including imaging on a disk (2) Influenza A: - Tamiflu started per medicine service, to be continued on discharge - Droplet precautions Subjective Pt tolerated clears very well. No abdominal pain. No nausea. Continues to have a cough. Physical Exam Constitutional: no acute distress Respiratory: normal respiratory effort Cardiovascular: Rate/Rhythm: regular rate and regular rhythm Gastrointestinal (Abdomen): soft, non-distended, non-tender Results & Data Vital Signs (Past 12 Hours) Vital Signs Temp Pulse Pulse Resp BP Pulse Ox 11/20/18 08:30 36.8 C 68 16 130/80 99 11/19/18 23:24 36.9 C 87 18 131/75 97 Laboratory Results 11/20/18 11/20/18 Range/Units 04:14 04:14 WBC 4.12 L (4.8-10.8) K/uL RBC 3.93 L (4.2-5.4) M/uL Hgb 12.2 (12.0-16.0) g/dL Hct 34.7 L (37-47) % MCV 88.3 (80-100) fL MCH 31.0 (25-34) pg MCHC 35.2 (32-36) g/dL RDW Std Deviation 40.6 (36.4-46.3) fL RDW Coeff of [place] 12.6 (11.5-14.5) % Plt Count 183 (130-400) K/uL MPV 9.7 (7.4-10.4) fL Immature Gran % (Auto) 0.2 % Neut % (Auto) 59.3 % Lymph % (Auto) 29.4 % [place] % (Auto) 10.4 % Eos % (Auto) 0.5 % Baso % (Auto) 0.2 % Immature Gran # (Auto) 0.01 (0.00-0.02) K/uL Neut # (Auto) 2.44 (1.4-6.5) K/uL Lymph # (Auto) 1.21 (1.2-3.4) K/uL [place] # (Auto) 0.43 (0.11-0.59) K/uL Eos # (Auto) 0.02 (0-0.5) K/uL Baso # (Auto) 0.01 (0-0.2) K/uL Sodium 139 (136-145) mmol/L Potassium 3.4 L (3.5-5.1) mmol/L Chloride 106 (98-107) mmol/L Carbon Dioxide 29 (21-32) mmol/L Anion Gap 4.0 (3-11) BUN 6 L (7-18) mg/dl Creatinine 0.80 (0.6-1.2) mg/dl Est Cr Clr Drug Dosing 77.8 ml/min Est GFR ( Amer) 90.9 Est GFR (Non-Af Amer) 78.5 BUN/Creatinine Ratio 8.1 L (10-20) Glucose 85 (70-99) mg/dl Calcium 7.9 L (8.5-10.1) mg/dl
--- NOTE | 2018-11-20 09:41 | Discharge Summary ---
Date of Service November 20, 2018 Admission HPI Per Admitting Provider 63 yr old woman visiting from [place] - flew up yesterday and then took [employer] bus from [place]. This morning, awoke with fever and cough. Coughing greenish sputum. [place] ill. Tried to eat some potato chips and vomited. Outpatient cxr done showed possible free air. Sent to ER where CT abd/ pelvis shows small amount of pneumoperitoneum. Not having any abdominal pain currently. In retrospect, thinks she may have had one pain in the LLQ during the airplane flight yesterday. Ate normally yesterday. Bowels functioning with normal bowel movement today. No current nausea and feels hungry. Last colonoscopy over 10 yrs ago. Has seen gi in the past for "stomach issues" and gassiness for which she takes gaviscon as needed. On fibercon also and typically has 3 bm's daily. No similar episodes in the past. No prior abdominal operations. Also diagnosed with the flu currently. Admission Exam Per Admitting Provider Constitutional: WD/WN, vitals as above Eyes: PERRL, conjunctivae normal, anicteric sclerae ENMT: external ear and nose normal, oropharynx normal Neck: trachea midline, no thyromegaly Respiratory: normal respiratory effort, lungs clear to auscultation Cardiovascular: RRR, no murmur, no edema Gastrointestinal (Abdomen): normal bowel sounds, soft, nontender, no hepatosplenomegaly no guarding, no rebound Musculoskeletal: no cyanosis or clubbing, extremities motor strength 5/5 Neurologic: PERRL, EOMI, accommodation nl, no face palsy, no dysarthria Psychiatric: A+Ox3, euthymic affect Principal Diagnosis Influenza A Pneumoperitoneum Discharge Exam Constitutional no acute distress Respiratory normal respiratory effort Cardiovascular Rate/Rhythm: regular rate and regular rhythm Gastrointestinal (Abdomen) soft, non-tender, non-distended Discharge Data Allergies Allergy/AdvReac Type Severity Reaction Status Date / Time prochlorperazine Allergy Intermediate passes out Verified 11/18/18 23:20 [From Compazine] Consultations 11/18/18 23:51 ED Decision to Admit Stat 11/19/18 07:37 Consult Hospitalist Routine Ordered Studies (04/20/19 @1906) CXR: XR chest 2V routine HISTORY: COUGH/CHEST PAIN COMPARISON: None. FINDINGS: No pneumothorax. No pleural effusions. The lungs are clear. The heart is normal in size. There is questionable trace right subdiaphragmatic gas. IMPRESSION: 1. No acute process within the chest. 2. Question of trace right subdiaphragmatic free air. This likely represents a bowel loop. However, follow-up dedicated abdominal series with a left lateral decubitus view is recommended for further evaluation.11/18/18 21:00 CT abd pelvis IV con only Stat CT angio chest PE protocol Stat (11/18/18 @ 21:00) CTA Pulmonary Arteries: CT DOSE: 903.08 mGy.cm HISTORY: Cough. Elevated d-dimer. TECHNIQUE: Multiaxial CT images of the chest were performed following the intravenous administration of contrast to evaluate the pulmonary arteries. Maximal intensity projection images were also obtained. A dose lowering technique was utilized adhering to the principles of ALARA. COMPARISON STUDY: None. FINDINGS: Normal caliber thoracic aorta with no evidence for dissection. The heart is normal in size. No pleural or pericardial effusions. No filling defects within the pulmonary arteries to suggest pulmonary embolus. There is mild thickening within the proximal to mid esophagus. No mediastinal or hilar lymphadenopathy. No suspicious lytic or blastic osseous lesions. Small fat- containing right-sided Bochdalek hernia. No pneumothorax. The central airways are patent. Pneumoperitoneum is identified. A 3 mm nodule within the right lung apex on image 402. Otherwise, the lungs are clear. IMPRESSION: 1. No evidence for pulmonary embolus. 2. Pneumoperitoneum. This is better appreciated on the same day abdomen and pelvis CT 3. A 3 mm indeterminate pulmonary nodule within the right lung apex. 4. Mild thickening of the proximal to mid esophagus. This may represent a mild esophagitis. (11/18/18 @ 21:00) CT Abdomen/Pelvis: HISTORY: Nausea. Cough. Abnormal chest x-ray. Evaluate for free air. TECHNIQUE: Multiaxial CT images of the abdomen and pelvis were performed following the use of intravenous contrast. A dose lowering technique was utilized adhering to the principles of ALARA. COMPARISON STUDY: None. FINDINGS: The lung bases are clear. No suspicious lytic or blastic osseous lesions. The liver, gallbladder, spleen, adrenal glands, pancreas, and left kidney are unremarkable. There is a 5 mm hypodense lesion within the lower pole the right kidney which is too small to characterize. No hydronephrosis. No retroperitoneal lymphadenopathy. Normal caliber abdominal aorta. The bladder, uterus, and bilateral adnexa are unremarkable. Trace pelvic free fluid. The main portal vein is patent. There is whirling of the central mesentery best seen on images 178 through 225. There is a single prominent mesenteric lymph node which may be reactive. No dilated loops of bowel at this time to suggest an obstruction. Normal appendix. A small amount of pneumoperitoneum is identified within the upper abdomen. No bowel wall thickening. Multiple colonic diverticula. No evidence for diverticulitis. IMPRESSION: 1. Confirmation of the small amount of pneumoperitoneum. This is concerning for a bowel perforation. However, the exact location is not clearly identified on this study. 2. Multiple colonic diverticula. No evidence for diverticulitis. 3. There is whirling of the mid mesentery which is concerning for an internal hernia. No evidence for bowel obstruction at this time. 4. Normal appendix. 5. These findings were discussed with Dr. Welch at 10:53 PM on 11/18/2018. (11/18/18 @ 21:07) US venous doppler LE BI Stat: BILATERAL LOWER EXTREMITY VENOUS DOPPLER HISTORY: Leg swelling. COMPARISON STUDY: None. FINDINGS: There is normal compressibility, flow, and augmentation within the bilateral lower extremity deep venous systems. IMPRESSION: No DVT within the right or left lower extremity. Hospital Course (1) Intra-abdominal free air of unknown etiology: 63 yr old woman with small amount of pneumoperitoneum and Influenza A but completely benign abd exam, no leukocytosis, no abdominal pain. ? small diverticular perforation that sealed itself vs ? PUD/gastritis with small perf vs ?esophageal perforation (she did have an episode of forceful vomiting prior to presentation). She was treated with Zosyn for the pneumoperitoneum of unknown etiology. Her vitals, labs, and abdominal exam remained stable and without any pain or tenderness throughout the hospitalization. Her diet was slowly advanced. She was transitioned to Cipro and Flagyl PO, with plan to complete a 7 day course of antibiotics on discharge. She was seen by the Hospitalist service for Influenza A and was started on a 7 day course of Tamiflu, which she will also continue on discharge. She will need outpt colonoscopy and possible EGD once this acute episode has resolved. Pt is aware of this need and will contact her geoscience professor in [place] to setup this appointment. She will schedule an appointment with her geoscience professor in [place]. She was instructed to avoid NSAIDs incase of gastritis/PUD. The patient is to be discharged with records, including imaging on a disk. (2) Influenza A: - Tamiflu started per medicine service, to be continued on discharge - Droplet precautions Total Time Total Time Spent Total Time Spent (In Minutes): 30 minutes Total Time Includes: Examination of the Patient, Discharge Planning, Medication Reconciliation and Communication With Other Providers Discharge Plan Discharge Items Patient Disposition: Home - Self-Care Reason For Visit: FREE AIR, FLU Discharge Diagnosis: Influenza A Pneumoperitoneum Discharge Goals: Improve disease control Activity: Resume your previous activity Lifting: None Bathing: No limitations Driving/Machine Use: No limitations Non-emergency contact: Primary Care Provider and Surgeon Call non-emergency contact if: you have any medication questions, your pain is worsening and your temperature is above 101 Follow-up/Referrals: PCP,NO [Primary Care Provider] - Diet: Regular Addtl Provider Instructions: - Follow up with a geoscience professor for colonoscopy (pneumoperitoneum (air in abdominal cavity) possibly from diverticulitis) and possible EGD (rule out ulcer disease as a cause of findings) as well as chronic abdominal issues - Complete antibiotics as prescribed - You may contact the General Surgery office at [phone] with any questions or concerns Prescriptions: New ciprofloxacin HCl [Cipro] 500 mg tablet 500 mg PO BID 6 Days Qty: 12 RF: 0 metronidazole [Flagyl] 500 mg tablet 500 mg PO Q8H 6 Days Qty: 18 RF: 0 Continued estradiol-norethindrone acet 1-0.5 mg Tablet 1 tab PO DAILY RF: 0 Stand-Alone Forms: [facility] Discharge Orders: Discharge Order (Routine); Ordered 11/20/18 Ordered By: Reina Friend Admission Data Admit Date/Time: 11/18/18 23:50 Attending Provider: Reina Friend Admit Provider: Li Bro Primary Care Provider: PCP,NO Other Providers: Li Bro ; Laith Clayton ; Deena Williamson ; Kulwant Cochran ; Yevgeniy Becker ; Zahra Ku ; Jude Lanier ; Tu Galvan ; Christiano Roque ; Michael Mcdaniels ; Gurinder Ashby ; Susanna Lawrence ; Mary Jane Tejeda ; Domitila Houston ; Zachary Hernandez ; Rafaela Pepe ; Cayetano Duran. ; Yunior Mandujano. ; Grayson Humphries ; Tatyana Mackey ; Amalia Albarado ; Jolanta Landrum ; Alonso Carney ; Leroy James ; Jeremy Mcfarlane ; Tatyana Vance Service: Surgical Services
[2018-11-20] MEDS: metroNIDAZOLE 500 MG TAB PO SCH ×2 (09:46→13:11)
== END 2018-11-20 15:47 | disposition home or self-care (01) | DRG 395 ==
LOC: ED 20:50 → 3W 23:50
DX: R51 Headache; K66.8 Other specified disorders of peritoneum; R79.1 Abnormal coagulation profile; M79.89 Other specified soft tissue disorders; E87.6 Hypokalemia; I10 Essential (primary) hypertension; Z79.890 Hormone replacement therapy; J10.1 Influenza due to other identified influenza virus with other respiratory manifestations; Z88.8 Allergy status to other drugs, medicaments and biological substances